=== PATIENT | female | born 1935 | race Caucasian/White ===

== ENCOUNTER 2017-11-15 16:07 | Emergency (ER) | payer OTHER ==
[~2017-11-15] VITALS: Ht 162.6 cm; Wt 158.8 kg
[~2017-11-15 16:07] MED LIST: ALLOPURINOL300 MG PO; ASPIRIN EC81 MG PO; BENZONATATE100 MG PO; CARVEDILOL6.25 MG PO; CLONIDINE HCL0.1 MG PO; FLUTICASONE PRO16 GM; GABAPENTIN300 MG PO; Gabapentin PO; HYDRALAZINE HC100 MG PO; ISOSORBIDE MONO30 MG PO; K DUR10 MEQ PO; LATANOPROST2.5 ML OP; LEVAQUIN250 MG PO; LEVOFLOXACIN500 MG PO; LEVOTHYROXINE50 MCG PO; LOSARTAN POTAS100 MG PO; MEDROL4 MG PO; NITROSTAT0.4 MG PO; PEPCID20 MG PO; PLAVIX75 MG PO; PROAIR HFA INH8.5 GM INH; SIMVASTATIN40 MG PO; TORSEMIDE10 MG PO; TORSEMIDE5 MG PO; ZOFRAN ODT4 MG PO
[2017-11-15] MEDS ORDERED: IBUPROFEN 600 MG TAB PO STA (16:59)
[2017-11-15] MEDS ORDERED: CYCLOBENZAPRINE HCL 10 MG TAB PO ONE (17:00)
[2017-11-15] MEDS ORDERED: HYDROCODONE/APAP 10MG-325MG TAB PO ONE (17:00)
[2017-11-15] MEDS ORDERED: CYMBALTA30 MG PO (19:02)
[2017-11-15] MEDS ORDERED: SYMBICORT 80-10.2 GM INH (19:02)
[2017-11-15] MEDS ORDERED: MECLIZINE HCL12.5 MG PO (19:02)
[2017-11-15] MEDS ORDERED: NORCO 7.5-3251 EACH PO (19:02)
[2017-11-15] MEDS ORDERED: MONTELUKAST SOD10 MG PO (19:02)
--- NOTE | 2017-11-15 20:18 | Diagnostic Imaging Report ---
Cervical Spine, 3 views HISTORY: Pain COMPARISON: None. FINDINGS: Limited sensitivity for detection of subtle fractures and ligamentous abnormalities. On the lateral view, the cervical spine is visualized from the skull base to C4. The alignment is normal. There is posterior fusion of C5-T2. No acute displaced fracture involving the visualized cervical spine. There is thickening of the prevertebral soft tissues up to 2.1 cm. IMPRESSION: Very limited exam. Lower cervical spine is not imaged on lateral view. Posterior fusion of lower cervical/upper thoracic spine. Increased prevertebral soft tissue thickness. Recommend further evaluation with soft tissue neck CT. Signed by: Dr. Evert Thomason MD on 11/15/2017 8:14 PM
--- NOTE | 2017-11-15 20:20 | Diagnostic Imaging Report ---
THORACIC SPINE LIMIT - 3 views HISTORY: Pain COMPARISON: None available. FINDINGS: Very limited study due to generalized demineralization and body habitus. Status post fusion of lower cervical/upper thoracic spine. Multilevel degenerative changes, marked by disc space narrowing and osteophytosis. IMPRESSION: Very limited, essentially nondiagnostic study. If there is high clinical concern for thoracic spine injury, consider obtaining CT. Signed by: Dr. Evert Thomason MD on 11/15/2017 8:16 PM
[2017-11-15] MEDS ORDERED: HYDROMORPHONE 1MG/1ML INJ IM STA (20:36)
--- NOTE | 2017-11-15 22:20 | Diagnostic Imaging Report ---
EXAMINATION: CT of the cervical spine and thoracic HISTORY:Status post fall, neck and back pain COMPARISON:None available TECHNIQUE: Multidetector helical axial images were obtained without contrast from the foramen magnum to superior endplate of T9. The images were reconstructed using bone and soft tissue algorithms and were viewed in axial, sagittal and coronal planes. Image quality: Very suboptimal study due to patient's body habitus and inability to raise their arms, which significant streak artifact and x-rayed in attenuation. FINDINGS: Alignment: Normal cervical lordosis. Increased thoracic kyphosis. Fracture/anterior subluxation at T8 as detailed below. Soft tissues: Paraspinal swelling/hematoma at the T8 level related to acute fracture. Vertebrae: -Acute comminuted mildly displaced fracture involving the anterior aspect of the T8 vertebral body (about 2 anterior thirds), the fracture line appears to be extending to the posterior aspect of the inferior endplate on both sides, limited evaluation of the posterior vertebral body cortex, grossly no posterior bone fragment retropulsion within the spinal canal is seen at this time. Mild mild decreased vertebral body height anteriorly (about 20%). -Anterior bridging osteophyte throughout the thoracic spine extending from T3 to partially visualized T9 is fractured at the discovertebral junction of T7-T8 due to above-mentioned T8 fracture. Intervertebral disk degenerative changes: No significant degenerative spinal canal or foraminal stenoses in the upper cervical spine. The spinal canal and foramina in the thoracic segment cannot adequately be evaluated. Postoperative changes: Bilateral posterolateral fusion with transarticular screws from C5 to T1, no evidence of hardware failure, fracture or loosening. IMPRESSION: Very suboptimal study due to patient's body habitus and inability to raise the arms. The thoracic spine was only scanned down to the superior endplate of T9. The spinal canal content cannot be evaluated. 1. Acute comminuted and mildly displaced fracture of the anterior two thirds of the T8 vertebral body, there is anterior subluxation of the fractured fragment by approximately 6 mm (at the T7-T8 discovertebral level). Grossly no posterior retropulsion within the spinal canal. Further evaluation of the remaining segment of the thoracic spine is recommended on an open MRI or wider bore CT scanner. 2. Posterior cervical spine fusion from C5 to T1 Note: Acute postraumatic spinal cord, vascular or ligamentous injuries cannot adequately be assessed by CT. The findings were discussed with the ER physician Dr. Maya on 11/15/2017 at 10:00 PM Signed by: Dr. Yamilet Cole M.D. on 11/15/2017 10:16 PM
[2017-11-15 22:25] LABS: BASOPHILS % 0.2 % (0.0-1.0); EOSINOPHILS # (AUTO) 0.2 (0.0-0.4); EOSINOPHILS % 2.1 % (0.0-6.0); HEMATOCRIT 30.4 % (34.2-44.1); HEMOGLOBIN 9.3 g/dL (12.0-16.0); LYMPHOCYTES # (AUTO) 1.7 (1.0-3.2); MEAN CORPUSCULAR HEMOGLOBIN 27.7 pg (28-32); MEAN CORPUSCULAR HGB CONC 30.6 g/dL (31-35); MEAN CORPUSCULAR VOLUME 90.5 fL (81-99); MONOCYTES # (AUTO) 0.8 (0.2-0.8); NEUTROPHILS # (AUTO) 6.2 (2.1-6.9); NEUTROPHILS % 69.4 % (38.7-80.0); PLATELET COUNT 164 x10e3/uL (140-360); RED BLOOD COUNT 3.36 x10e6/uL (3.6-5.1)
[2017-11-15 22:45] LABS: ALBUMIN 2.9 g/dL (3.5-5.0); ALBUMIN/GLOBULIN RATIO 0.9 (0.8-2.0); ANION GAP 11.3 mmol/L (8-16); CALCIUM 8.7 mg/dL (8.4-10.2); CREATININE, SERUM 1.1 mg/dL (0.57-1.11); POTASSIUM 4.3 mmol/L (3.5-5.1)
[2017-11-15] MEDS ORDERED: HYDROMORPHONE 1MG/1ML INJ IV STA (23:44)
[2017-11-15] MEDS ORDERED: HYDROMORPHONE 2MG/ML INJ ONE (23:50)
[2017-11-15 23:56] VITALS: BP 165/57
== END 2017-11-15 23:57 | disposition short-term general hospital (02) ==
LOC: ER 16:10
DX: M54.6 Pain in thoracic spine (principal); S22.069A Unspecified fracture of T7-T8 vertebra, initial encounter for closed fracture; W01.0XXA Fall on same level from slipping, tripping and stumbling without subsequent striking against object, initial encounter; Y93.01 Activity, walking, marching and hiking; Y92.008 Other place in unspecified non-institutional (private) residence as the place of occurrence of the external cause; I10 Essential (primary) hypertension; Z95.5 Presence of coronary angioplasty implant and graft
CPT/HCPCS: 36415; 72040; 72070; 72125; 72128; 80053; 85025; 93005; 99284; J1170 ×2

== ENCOUNTER 2018-01-13 08:32 | Emergency (ER) | payer OTHER ==
[~2018-01-13] VITALS: Ht 162.6 cm; Wt 181.4 kg
[~2018-01-13 08:32] MED LIST changes: +CYMBALTA30 MG PO; +MECLIZINE HCL12.5 MG PO; +MONTELUKAST SOD10 MG PO; +NORCO 7.5-3251 EACH PO; +SYMBICORT 80-10.2 GM INH
--- OUTSIDE RECORDS SUMMARY | 2018-01-13 08:35 | XMS REPORT ---
Author Author [facility] Address Unknown Phone Unavailable Care Team Providers Care Ladle Repairer Name Role Phone PAPITO BREWSTER Unavailable Unavailable Problems This patient has no known problems. Allergies, Adverse Reactions, Alerts This patient has no known allergies or adverse reactions. Medications This patient has no known medications. Results Test Description Test Time Test Comments Text Results Atomic Results Result Comments CT THORACIC SPINE WO [place] [address] Patient Name: NEHA BARRY MR #: [id number] : 1935 Age/Sex: 82/F Req # : [id number] Adm Physician: Ordered by: PANFILO ESTRADA MD Report # : [id number] Location: ER Room/Bed: Procedure: [id number] [id number] CT/CT THORACIC SPINE WO Exam Date: Exam Time : REPORT STATUS: Signed EXAMINATION: CT of the cervical spine and thoracic HISTORY:Status post fall, neck and back pain COMPARISON:None available TECHNIQUE: Multidetector helical axial images were obtained without contrast from the foramen magnum to superior endplate of T9. The images were reconstructed using bone and soft tissue algorithms and were viewed in axial, sagittal and coronal planes. Image quality: Very suboptimal study due to patient's body habitus and inability to raise their arms, which significant streak artifact and x-rayed in attenuation. FINDINGS: Alignment: Normal cervical lordosis. Increased thoracic kyphosis. Fracture/anterior subluxation at T8 as detailed below. Soft tissues: Paraspinal swelling/hematoma at the T8 level related to acute fracture. Vertebrae: -Acute comminuted mildly displaced fracture involving the anterior aspect of the T8 vertebral body ( about 2 anterior thirds), the fracture line appears to be extending to the posterior aspect of the inferior endplate on both sides, limited evaluation of the posterior vertebral body cortex, grossly no posterior bone fragment retropulsion within the spinal canal is seen at this time. Mild mild decreased vertebral body height anteriorly (about 20%). -Anterior bridging osteophyte throughout the thoracic spine extending from T3 to partially visualized T9 is fractured at the discovertebral junction of T7-T8 due to above-mentioned T8 fracture. Intervertebral disk degenerative changes: No significant degenerative spinal canal or foraminal stenoses in the upper cervical spine. The spinal canal and foramina in the thoracic segment cannot adequately be evaluated. Postoperative changes: Bilateral posterolateral fusion with transarticular screws from C5 to T1, no evidence of hardware failure, fracture or loosening. IMPRESSION: Very suboptimal study due to patient's body habitus and inability to raise the arms. The thoracic spine was only scanned down to the superior endplate of T9. The spinal canal content cannot be evaluated. 1. Acute comminuted and mildly displaced fracture of the anterior two thirds of the T8 vertebral body , there is anterior subluxation of the fractured fragment by approximately 6 mm (at the T7-T8 discovertebral level). Grossly no posterior retropulsion within the spinal canal. Further evaluation of the remaining segment of the thoracic spine is recommended on an open MRI or wider bore CT scanner. 2. Posterior cervical spine fusion from C5 to T1 Note: Acute postraumatic spinal cord, vascular or ligamentous injuries cannot adequately be assessed by CT. The findings were discussed with the ER physician Dr. Estrada on 11/15/2017 at 10:00 PM Signed by: Dr. Chuck Cole M.D. on 11/15/2017 10:16 PM Dictated By: CHUCK COLE MD 15 Transcribed By: DANIEL on 11/15/172215 COPY TO: PANFILO ESTRADA MD CT CERVICAL SPINE [place] [address] Patient Name: NEHA BARRY MR #: [id number] : 1935 Age/Sex: 82/F [facility] # : [id number] [facility] Physician: Ordered by: PANFILO ESTRADA MD Report # : [id number] Location: ER Room/Bed: Procedure: [id number] [id number] CT/CT CERVICAL SPINE WO Exam Date: Exam Time : REPORT STATUS: Signed EXAMINATION: CT of the cervical spine and thoracic HISTORY:Status post fall, neck and back pain COMPARISON:None available TECHNIQUE: Multidetector helical axial images were obtained without contrast from the foramen magnum to superior endplate of T9. The images were reconstructed using bone and soft tissue algorithms and were viewed in axial, sagittal and coronal planes. Image quality: Very suboptimal study due to patient's body habitus and inability to raise their arms, which significant streak artifact and x-rayed in attenuation. FINDINGS: Alignment: Normal cervical lordosis. Increased thoracic kyphosis. Fracture/anterior subluxation at T8 as detailed below. Soft tissues: Paraspinal swelling/hematoma at the T8 level related to acute fracture. Vertebrae: -Acute comminuted mildly displaced fracture involving the anterior aspect of the T8 vertebral body ( about 2 anterior thirds), the fracture line appears to be extending to the posterior aspect of the inferior endplate on both sides, limited evaluation of the posterior vertebral body cortex, grossly no posterior bone fragment retropulsion within the spinal canal is seen at this time. Mild mild decreased vertebral body height anteriorly (about 20%). -Anterior bridging osteophyte throughout the thoracic spine extending from T3 to partially visualized T9 is fractured at the discovertebral junction of T7-T8 due to above-mentioned T8 fracture. Intervertebral disk degenerative changes: No significant degenerative spinal canal or foraminal stenoses in the upper cervical spine. The spinal canal and foramina in the thoracic segment cannot adequately be evaluated. Postoperative changes: Bilateral posterolateral fusion with transarticular screws from C5 to T1, no evidence of hardware failure, fracture or loosening. IMPRESSION: Very suboptimal study due to patient's body habitus and inability to raise the arms. The thoracic spine was only scanned down to the superior endplate of T9. The spinal canal content cannot be evaluated. 1. Acute comminuted and mildly displaced fracture of the anterior two thirds of the T8 vertebral body , there is anterior subluxation of the fractured fragment by approximately 6 mm (at the T7-T8 discovertebral level). Grossly no posterior retropulsion within the spinal canal. Further evaluation of the remaining segment of the thoracic spine is recommended on an open MRI or wider bore CT scanner. 2. Posterior cervical spine fusion from C5 to T1 Note: Acute postraumatic spinal cord, vascular or ligamentous injuries cannot adequately be assessed by CT. The findings were discussed with the ER physician Dr. Estrada on 11/15/2017 at 10:00 PM Signed by: Dr. Chuck Cole M.D. on 11/15/2017 10:16 PM Dictated By: CHUCK COLE MD 15 Transcribed By: DANIEL on 11/15/172215 COPY TO: PANFILO ESTRADA MD C-SPINE 2 VIEWS AP LATERAL [place] [address] Patient Name: NEHA BARRY MR #: [id number] : 1935 Age/Sex: 82/F Req #: [id number] Adm Physician: Ordered by: ARYAN LEMUS CLAY MAKER Report #: [id number] Location: ER Room/Bed: Procedure: [id number] DX/C-SPINE 2 VIEWS AP LATERAL Exam Date: 11/15/17 Exam Time: 1844 REPORT STATUS: Signed Cervical Spine, 3 views HISTORY: Pain COMPARISON: None. FINDINGS: Limited sensitivity for detection of subtle fractures and ligamentous abnormalities. On the lateral view, the cervical spine is visualized from the skull base to C4. The alignment is normal. There is posterior fusion of C5-T2. No acute displaced fracture involving the visualized cervical spine. There is thickening of the prevertebral soft tissues up to 2.1 cm. IMPRESSION: Very limited exam. Lower cervical spine is not imaged on lateral view. Posterior fusion of lower cervical/upper thoracic spine. Increased prevertebral soft tissue thickness. Recommend further evaluation with soft tissue neck CT. Signed by: Dr. Evert Oconnell MD on 11/15/2017 8: 14 PM Dictated By: EVERT OCONNELL MD 13 Transcribed By: DANIEL on 11/15/172013 COPY TO: ARYAN LEMUS NP THORACIC SPINE LIMIT [place] [address] Patient Name: NEHA BARRY MR #: [id number] : 1935 Age/Sex: 82/F Req # : [id number] Adm Physician: Ordered by: ARYAN LEMUS NP Report #: [id number] Location: ER Room/Bed: Procedure: [id number] DX/THORACIC SPINE LIMIT Exam Date: 11/15/17 Exam Time: 1844 REPORT STATUS: Signed THORACIC SPINE LIMIT - 3 views HISTORY: Pain COMPARISON: None available. FINDINGS: Very limited study due to generalized demineralization and body habitus. Status post fusion of lower cervical/upper thoracic spine. Multilevel degenerative changes , marked by disc space narrowing and osteophytosis. IMPRESSION: Very limited, essentially nondiagnostic study. If there is high clinical concern for thoracic spine injury, consider obtaining CT. Signed by: Dr. Evert Oconnell MD on 11/15/2017 8:16 PM Dictated By: EVERT OCONNELL MD 15 Transcribed By: DANIEL on 11/15/172015 COPY TO: ARYAN LEMUS NP
--- OUTSIDE RECORDS SUMMARY | 2018-01-13 08:35 | XMS REPORT | Clinical Summary ---
Author Author [facility] Address Unknown Phone Unavailable Care Team Providers Care Brand Communications Manager Name Role Phone PCP Unavailable Allergies Active Allergy Reactions Severity Noted Date Comments Penicillins Anaphylaxis High 07/16/2016 Sulfa (Sulfonamide Anaphylaxis High 07/16/2016 Antibiotics) Current Medications Prescription Sig. Disp. Refills Start End Date Status Date allopurinol (ZYLOPRIM) 300 mg. 03/30/20 Active 300 MG tablet 16 clopidogrel (PLAVIX) 75 75 mg. 05/20/20 Active mg tablet 16 aspirin 81 MG EC tablet 81 mg. Active budesonide-formoterol 2 puffs. 06/18/20 Active (SYMBICORT) 80-4.5 16 mcg/actuation inhaler gabapentin (NEURONTIN) TAKE 1 TABLET BY MOUTH 2 06/08/20 Active 600 MG tablet TIMES DAILY. 16 hydrALAZINE (APRESOLINE) 100 mg. 01/05/20 Active 100 MG tablet 16 simvastatin (ZOCOR) 40 MG 40 mg. 01/05/20 Active tablet 16 potassium chloride 20 mEq 1 tablet. 07/02/20 Active TbER 16 losartan (COZAAR) 100 MG 100 mg. 04/29/20 Active tablet 16 levothyroxine (SYNTHROID, 75 mcg. 04/19/20 Active LEVOTHROID) 75 MCG tablet 16 isosorbide mononitrate 30 mg. 01/05/20 Active (IMDUR) 30 MG 24 hr 16 tablet Active Problems Problem Noted Date Cellulitis of right lower extremity 07/16/2016 Social History Tobacco Use Types Packs/Day Years Used Date Never Smoker Alcohol Use Drinks/Week oz/Week Comments No Sex Assigned at Date Recorded Not on file Last Filed Vital Signs Not on file Plan of Treatment Not on file Results Not on fileafter 01/12/2017
[2018-01-13] MEDS ORDERED: FAMOTIDINE 20 MG/2 ML VIAL IV STA (08:37)
[2018-01-13] MEDS ORDERED: METOCLOPRAMIDE HCL 10 MG/2ML VIAL IV ONE (08:45)
[2018-01-13 09:39] LABS: BASOPHILS % 0.4 % (0.0-1.0); EOSINOPHILS # (AUTO) 0.1 (0.0-0.4); EOSINOPHILS % 0.8 % (0.0-6.0); LYMPHOCYTES # (AUTO) 1.5 (1.0-3.2); LYMPHOCYTES % 21.3 % (18.0-39.1); MEAN CORPUSCULAR HEMOGLOBIN 28.1 pg (28-32); MEAN CORPUSCULAR VOLUME 93.7 fL (81-99); MONOCYTES # (AUTO) 0.5 (0.2-0.8); MONOCYTES % 7.6 % (4.4-11.3); NEUTROPHILS % 69.5 % (38.7-80.0); PLATELET COUNT 153 x10e3/uL (140-360); RED BLOOD COUNT 4.27 x10e6/uL (3.6-5.1); RED CELL DISTRIBUTION WIDTH 16.4 % (11.7-14.4)
[2018-01-13 09:53] LABS: ALBUMIN 3.2 g/dL (3.5-5.0); ALBUMIN/GLOBULIN RATIO 0.8 (0.8-2.0); ANION GAP 14.8 mmol/L (8-16); CALCIUM 9.7 mg/dL (8.4-10.2); CREATININE, SERUM 0.96 mg/dL (0.57-1.11); POTASSIUM 3.8 mmol/L (3.5-5.1)
[2018-01-13 10:19] LABS: BILIRUBIN,URINE NEGATIVE (NEGATIVE); CLARITY,URINE SL CLOUDY (CLEAR); COLOR,URINE YELLOW (YELLOW); KETONES,URINE NEGATIVE (NEGATIVE); LEUKOCYTE ESTERASE ,URINE NEGATIVE (NEGATIVE); NITRITE,URINE NEGATIVE (NEGATIVE); PROTEIN,URINE DIPSTICK 2+ (NEGATIVE); URINE UROBILINOGEN 0.2 mg/dL (0.2 - 1)
--- NOTE | 2018-01-13 10:20 | Diagnostic Imaging Report ---
PROCEDURE:ABDOMEN ACUTE SERIES W/PA CXR COMPARISON:CT chest 11/15/2017. INDICATIONS:VOMITING, NAUSEA FINDINGS: CHEST: Normal cardiac silhouette. Normal mediastinum. No focal consolidation or parenchymal mass. Bibasilar atelectasis. No pleural effusion or pneumothorax. Scarring is present in the left lung base. BOWEL PATTERN: Nonobstructive bowel gas pattern. Moderate amount of retained feces is present in the colon and rectum. Several densities project over the colon, likely representing retained contrast within diverticuli. No abnormal calcifications project over the expected region of the kidneys, course of the ureters bilaterally, and urinary bladder. SOFT TISSUES: Normal. BONES: Posterior fusion of the lower cervical spine. Degenerative changes of the thoracic and lumbar spine. CONCLUSION: 1. No acute thoracic abnormality. 2. No evidence of bowel obstruction. Dictated by: Bruno Cleveland M.D. on 01/13/2018 at 10:19 Electronically approved by: Bruno Cleveland M.D. on 01/13/2018 at 10:19
[2018-01-13 10:41] LABS: WBC,URINE (MAN) 0-5 /HPF (0-5)
[2018-01-13 10:42] LABS: BACTERIA,URINE RARE /HPF; EPITHELIAL CELLS,URINE RARE /LPF
--- NOTE | 2018-01-13 11:29 | Diagnostic Imaging Report ---
PROCEDURE:ANKLE 3+ VIEWS LEFT TECHNIQUE: INDICATION: COMPARISON:None. FINDINGS:Soft tissue swelling is present around the ankle and the medial and lateral malleoli. No acute displaced fracture or dislocation. Bone mineralization is within normal limits. Degenerative changes are present. Atherosclerotic calcifications. No expansile lytic or sclerotic lesion. CONCLUSION:Soft tissue swelling without focal underlying osseous abnormality. Dictated by: Bruno Cleveland M.D. on 01/13/2018 at 11:29 Electronically approved by: Bruno Cleveland M.D. on 01/13/2018 at 11:29
[2018-01-13] MEDS ORDERED: ONDANSETRON HCL 4 MG ORAL DISINTEGRATING TAB PO ONE ×2 (12:00)
== END 2018-01-13 12:01 | disposition home or self-care (01) ==
LOC: ER 08:32
DX: R11.2 Nausea with vomiting, unspecified (principal); T50.995A Adverse effect of other drugs, medicaments and biological substances, initial encounter; G89.4 Chronic pain syndrome; E66.01 Morbid (severe) obesity due to excess calories
CPT/HCPCS: 36415; 73610; 74022; 80053; 81001; 85025; 87086; 99285; J2765

== ENCOUNTER 2018-03-09 16:32 | Emergency (ER) | payer OTHER ==
[~2018-03-09] VITALS: Ht 162.6 cm; Wt 181.4 kg
--- OUTSIDE RECORDS SUMMARY | 2018-03-09 16:35 | XMS REPORT | Clinical Summary ---
Author Author [facility] Address Unknown Phone Unavailable Care Team Providers Care Candle Wicker Name Role Phone PCP Unavailable Allergies Active [...] Not on file Results Not on fileafter 03/08/2017
--- OUTSIDE RECORDS SUMMARY | 2018-03-09 16:35 | XMS REPORT | Continuity of Care Document ---
Author Author [facility] Organization [facility] Address [address] [place] [address] Phone Unavailable Care Team Providers Care Project Manager Industrial Name Role Phone YAMILE SWAIN PCP Insurance Providers Guarantor Neha Carcamo Address [address] [place] [address] Email [email or web address] Payer [employer] Policy Number [id number] Subscriber's Name Neha Carcamo Relationship 18 Self / Same As Patient Group Number [id number] Group Name [employer] - Medicare Advantage Divis Effective Date 18 Advance Directives Directive Response Recorded Date/Time Does the patient have an advance directive? No 10/23/15 6:32pm If yes, is advance directive on file with [facility]? Yes 10/03/15 1:52am If not on file with [facility] will patient provide a copy? Yes 10/03/15 1:52am Do you have a Directive to Physician? No 01/13/18 11:18am Do you have a Medical Power of Steam Plant Records Clerk? No 01/13/18 11:18am Do you have an out of hospital Do Not Resuscitate Order? No 01/13/18 11:18am Do you have any special needs we should be aware of? No 01/13/18 11:18am Do you have a support person here with you today? Yes 01/13/18 11:18am Did patient receive Notice of Privacy Practices? Yes 01/13/18 11:18am Did patient receive patient rights and responsibilities? Yes 01/13/18 11:18am Problems Medical Problem Onset Date Status CHF (congestive heart failure) 10/23/2015 Acute Cellulitis of both lower extremities 10/02/2015 Acute Medications Current Home Medications Medication Dose Units Route Directions Days Qty Instructions Start Date Albuterol Sulfate (Proair Hfa Inhaler*) 8.5 Gm Inh 2 Inh Inhalation Four Times Daily Allopurinol 300 Mg Tablet 300 Mg Oral Daily 30 Tab Aspirin (Aspirin Ec) 81 Mg Tablet.dr 81 Mg Oral Daily 30 Tab Benzonatate 100 Mg Capsule 100 Mg Oral Three Times A Day as needed for Cough Budesonide/Formoterol Fumarate (Symbicort 80-4.5 Mcg Inhaler) 10.2 Gm Hfa.aer.ad 2 Each Inhalation Twice A Day Carvedilol 6.25 Mg Tablet 6.25 Mg Oral Twice A Day Clopidogrel Bisulfate (Plavix) 75 Mg Tablet 75 Mg Oral Daily 30 Tab Duloxetine Hcl (Cymbalta) 30 Mg Capsule.dr 30 Mg Oral Daily 30 Cap Famotidine (Pepcid) 20 Mg Tablet 20 Mg Oral Twice Daily Before Meals 30 Days 11/01/15 Fluticasone Propionate 16 Gm Palm.susp 2 Sprays Nasal Daily Gabapentin 300 Mg Capsule 300 Mg Oral Twice A Day 60 Cap Gabapentin 300 Mg Cap 100 Mg Oral Every 12 Hours 30 Days 11/01/15 Hydralazine Hcl 100 Mg Tablet 100 Mg Oral Four Times Daily Hydrocodone Bit/Acetaminophen ([place] 7.5-325 Tablet) 1 Each Tablet 1 Ea Oral Every 8 Hours for Pain Isosorbide Mononitrate (Isosorbide Mononitrate Er) 30 Mg Tab.er.24h 30 Mg Oral Daily 30 Tab Latanoprost 2.5 Ml Drops 1 Drop Ophthalmic Bedtime Levofloxacin (Levaquin) 250 Mg Tablet 250 Mg Oral Daily 7 Tab 11/01 Levothyroxine Sodium 50 Mcg Tablet 88 Mcg Oral Daily 30 Tab Losartan Potassium 100 Mg Tablet 100 Mg Oral Daily Meclizine Hcl 12.5 Mg Tablet 25 Mg Oral Three Times A Day Montelukast Sodium 10 Mg Tablet 10 Mg Oral Daily 30 Tab Nitroglycerin (Nitrostat) 0.4 Mg Tab.subl 0.4 Mg Oral As Needed as needed for Chest Pain Ondansetron (Zofran Odt) 4 Mg Tab.rapdis 4 Mg Oral Every 6 Hours as needed for Nausea And Vomiting 30 Tab 11/01/15 Potassium Chloride (K Dur*) 10 Meq Tabcr 20 Meq Oral Twice A Day Simvastatin 40 Mg Tablet 40 Mg Oral Today At 9:00PM 30 Tab Torsemide 10 Mg Tablet 40 Mg Oral Daily Past Home Medications Medication Directions Ordered Status Clonidine Hcl 0.1 Mg Tablet, 0.1 Mg Oral Three Times A Day Discontinued Levofloxacin 500 Mg Tablet, 500 Mg Oral Daily Discontinued Methylprednisolone (Medrol) 4 Mg Tablet, 4 Mg Oral Discontinued Torsemide 5 Mg Tablet, 5 Mg Oral Twice A Day Discontinued Social History Social History Problem Response Recorded Date/Time Onset Date Status Hx Psychiatric Problems No 10/23/2015 6:32pm Not Applicable Not Applicable Hx Eating Disorder No 10/03/2015 1:52am Not Applicable Not Applicable Hx Substance Use Disorder No 10/03/2015 1:52am Not Applicable Not Applicable Hx Depression Yes 10/03/2015 1:52am Not Applicable Not Applicable Hx Alcohol Use No 10/03/2015 1:52am Not Applicable Not Applicable Hx Substance Use Treatment No 10/03/2015 1:52am Not Applicable Not Applicable Hx Physical Abuse No 10/03/2015 1:52am Not Applicable Not Applicable Hospital Discharge Instructions No hospital discharge instruction information available. Plan of Care Discharge Date 01/13/18 12:01pm Disposition HOME, SELF-CARE Condition at Discharge Stable Instructions/Education Provided Medication Safety Vomiting - Adult Forms Provided Work/School Excuse Prescriptions See Medication Section Referrals YAMILE SWAIN Order Date: Call for an appointment Address: [address] [place] [id number] Additional Instructions/Education Discontinue Vicodin Functional Status No functional status information available. Allergies, Adverse Reactions, Alerts Allergen Type Severity Reaction Status Last Updated Sulfa (Sulfonamide Antibiotics) Allergy Intermediate SWELLING Active 10/26 penicillin Allergy Intermediate SWELLING Active 10/23/15 Immunizations No immunization information available. Vital Signs Acute Vital Signs Vital Response Date/Time Temperature (Fahrenheit) 97.8 degrees F (97.6 - 99.5) 11/15/2017 11:56pm Pulse Pulse Rate (adult) 73 bpm (60 - 90) 11/15/2017 11:56pm Respiratory Rate 22 bpm (12 - 24) 11/15/2017 11:56pm Blood Pressure 165/57 mm Hg 11/15/2017 11:56pm Height 5 ft 4 in 01/13/2018 8:34am Weight 400 lb 01/13/2018 8:34am Body Mass Index 68.7 kg/m^2 01/13/2018 8:34am Results Laboratory Results Test Name Result Units Flags Reference Collection Date/Time Result Date/ Time Comments White Blood Count 7.13 x10e3/uL 4.8-10.8 01/13/2018 9:01/13/2018 9 :46am Red Blood Count 4.27 x10e6/uL 3.6-5.1 01/13/2018 9:01/13/2018 9: 46am Hemoglobin 12.0 g/dL 12.0-16.0 01/13/2018 9:01/13/2018 9:46am Hematocrit 40.0 % 34.2-44.1 01/13/2018 9:01/13/2018 9:46am Mean Corpuscular Volume 93.7 fL 81-99 01/13/2018 9:01/13/2018 9: 46am Mean Corpuscular Hemoglobin 28.1 pg 28-32 01/13/2018 9:01/13/2018 9:46am Mean Corpuscular Hemoglobin Concent 30.0 g/dL L 31-35 01/13/2018 9:01/13/2018 9:46am Red Cell Distribution Width 16.4 % H 11.7-14.4 01/13/2018 9:2017 9:46am Platelet Count 153 x10e3/uL 140-360 01/13/2018 9:01/13/2018 9: 46am Neutrophils (%) (Auto) 69.5 % 38.7-80.0 01/13/2018 9:01/13/2018 9: 46am Lymphocytes (%) (Auto) 21.3 % 18.0-39.1 01/13/2018 9:01/13/2018 9: 46am Monocytes (%) (Auto) 7.6 % 4.4-11.3 01/13/2018 9:01/13/2018 9: 46am Eosinophils (%) (Auto) 0.8 % 0.0-6.0 01/13/2018 9:01/13/2018 9: 46am Basophils (%) (Auto) 0.4 % 0.0-1.0 01/13/2018 9:01/13/2018 9:46am IM GRANULOCYTES % 0.4 % 0.0-1.0 01/13/2018 9:01/13/2018 9:46am Neutrophils # (Auto) 5.0 2.1-6.9 01/13/2018 9:1901/13/2018 9:46am Lymphocytes # (Auto) 1.5 1.0-3.2 01/13/2018 9:01/13/2018 9:46am Monocytes # (Auto) 0.5 0.2-0.8 01/13/2018 9:01/13/2018 9:46am Eosinophils # (Auto) 0.1 0.0-0.4 01/13/2018 9:01/13/2018 9:46am Basophils # (Auto) 0.0 0.0-0.1 01/13/2018 9:01/13/2018 9:46am Absolute Immature Granulocyte (auto 0.03 x10e3/uL 0-0.1 01/13/2018 9: 1901/13/2018 9:46am Urine Color YELLOW YELLOW 01/13/2018 8:00am 01/13/2018 10:19am Urine Clarity SL CLOUDY CLEAR 01/13/2018 8:00am 01/13/2018 10:19am Urine Specific Gray 1.020 1.010-1.025 01/13/2018 8:00am 2017 10:19am Urine pH 5 5 - 7 01/13/2018 8:00am 01/13/2018 10:19am Urine Leukocyte Esterase NEGATIVE NEGATIVE 01/13/2018 8:00am 2017 10:19am Urine Nitrite NEGATIVE NEGATIVE 01/13/2018 8:00am 01/13/2018 10:19am Urine Protein 2+ H NEGATIVE 01/13/2018 8:00am 01/13/2018 10:19am Urine Glucose (UA) NEGATIVE NEGATIVE 01/13/2018 8:00am 01/13/2018 10: 19am Urine Ketones NEGATIVE NEGATIVE 01/13/2018 8:00am 01/13/2018 10:19am Urine Urobilinogen 0.2 mg/dL 0.2 - 1 01/13/2018 8:00am 01/13/2018 10: 19am Urine Bilirubin NEGATIVE NEGATIVE 01/13/2018 8:00am 01/13/2018 10: 19am Urine Blood 4+ H NEGATIVE 01/13/2018 8:00am 01/13/2018 10:19am Urine WBC 0-5 /HPF 0-5 01/13/2018 8:00am 01/13/2018 10:42am Urine RBC 11-20 /HPF H 0-5 01/13/2018 8:00am 01/13/2018 10:42am Urine Bacteria RARE /HPF NONE 01/13/2018 8:00am 01/13/2018 10:42am Urine Epithelial Cells RARE /LPF NONE 01/13/2018 8:00am 01/13/2018 10: 42am Sodium Level 143 mmol/L 136-145 01/13/2018 9:1901/13/2018 10:10am Potassium Level 3.8 mmol/L 3.5-5.1 01/13/2018 9:1901/13/2018 10: 10am Chloride Level 108 mmol/L H 98-107 01/13/2018 9:1901/13/2018 10:10am Carbon Dioxide Level 24 mmol/L 22-01/13/2018 9:1901/13/2018 10: 10am Anion Gap 14.8 mmol/L 8-16 01/13/2018 9:1901/13/2018 10:10am Blood Urea Nitrogen 17 mg/dL 7-01/13/2018 9:01/13/2018 10:10am Creatinine 0.96 mg/dL 0.57-1.11 01/13/2018 9:1901/13/2018 10:10am BUN/Creatinine Ratio 18 6-25 01/13/2018 9:1901/13/2018 10:10am Estimat Glomerular Filtration Rate 56 ML/MIN L 60- 01/13/2018 9:19 10:10am Ranges were taken from the National Kidney Disease Education Program and the [employer] literature. Reference ranges: 60 or greater: Normal 16-59 (for 3 consecutive months): Chronic kidney disease 15 or less: Kidney failure Glucose Level 116 mg/dL 74-118 01/13/2018 9:01/13/2018 10:10am Calcium Level 9.7 mg/dL 8.4-10.2 01/13/2018 9:01/13/2018 10:10am Total Bilirubin 0.5 mg/dL 0.2-1.2 01/13/2018 9:01/13/2018 10:10am Aspartate Amino Transf (AST/SGOT) 19 IU/L 5-34 01/13/2018 9:2017 10:10am Alanine Aminotransferase (ALT/SGPT) 15 IU/L 0-55 01/13/2018 9: 10:10am Total Protein 7.2 g/dL 6.5-8.1 01/13/2018 9:01/13/2018 10:10am Albumin 3.2 g/dL L 3.5-5.0 01/13/2018 9:01/13/2018 10:10am Globulin 4.0 g/dL H 2.3-3.5 01/13/2018 9:01/13/2018 10:10am Albumin/Globulin Ratio 0.8 0.8-2.0 01/13/2018 9:01/13/2018 10: 10am Alkaline Phosphatase 134 IU/L 40-150 01/13/2018 9:01/13/2018 10: 10am Procedures Procedure Status Date Provider(s) Computed tomography of cervical spine without contrast Active 11/15/17 PANFILO ESTRADA MD Computed tomography of thoracic spine without contrast Active 11/15/17 PANFILO ESTRADA MD Encounters Encounter Location Arrival/Admit Date Discharge/Depart Date Attending Provider Departed Emergency Room [facility] 01/13/18 8:32am 12:01pm EMELY CARRINGTON MD Departed Emergency Room [facility] 11/15/17 4:10pm 11:57pm PAPITO BREWSTER MD
[2018-03-09 17:33] LABS: BASOPHILS % 0.5 % (0.0-1.0); EOSINOPHILS # (AUTO) 0.2 (0.0-0.4); EOSINOPHILS % 2.7 % (0.0-6.0); HEMATOCRIT 35.6 % (34.2-44.1); HEMOGLOBIN 10.9 g/dL (12.0-16.0); LYMPHOCYTES # (AUTO) 2.2 (1.0-3.2); LYMPHOCYTES % 26.5 % (18.0-39.1); MEAN CORPUSCULAR HEMOGLOBIN 28.2 pg (28-32); MEAN CORPUSCULAR HGB CONC 30.6 g/dL (31-35); MEAN CORPUSCULAR VOLUME 92.2 fL (81-99); MONOCYTES # (AUTO) 0.7 (0.2-0.8); MONOCYTES % 7.9 % (4.4-11.3); NEUTROPHILS # (AUTO) 5.1 (2.1-6.9); NEUTROPHILS % 61.9 % (38.7-80.0); PLATELET COUNT 201 x10e3/uL (140-360); RED BLOOD COUNT 3.86 x10e6/uL (3.6-5.1); RED CELL DISTRIBUTION WIDTH 16.6 % (11.7-14.4)
[2018-03-09 17:35] LABS: BILIRUBIN,URINE NEGATIVE (NEGATIVE); CLARITY,URINE CLEAR (CLEAR); COLOR,URINE YELLOW (YELLOW); KETONES,URINE NEGATIVE (NEGATIVE); LEUKOCYTE ESTERASE ,URINE NEGATIVE (NEGATIVE); NITRITE,URINE NEGATIVE (NEGATIVE); PROTEIN,URINE DIPSTICK NEGATIVE (NEGATIVE); URINE UROBILINOGEN 0.2 mg/dL (0.2 - 1)
[2018-03-09 17:47] LABS: ALBUMIN 2.8 g/dL (3.5-5.0); ALBUMIN/GLOBULIN RATIO 0.8 (0.8-2.0); ANION GAP 11.2 mmol/L (8-16); CALCIUM 9.2 mg/dL (8.4-10.2); CREATININE, SERUM 1.03 mg/dL (0.57-1.11); POTASSIUM 4.2 mmol/L (3.5-5.1)
[2018-03-09 17:49] LABS: BACTERIA,URINE RARE /HPF; EPITHELIAL CELLS,URINE FEW /LPF; MUCUS,URINE FEW (RARE); RBC,URINE 0-5 /HPF (0-5)
[2018-03-09 17:54] LABS: CREATINE KINASE MB 0.7 ng/mL (0-5.0)
[2018-03-09 18:45] VITALS: BP 148/70
== END 2018-03-09 20:24 | disposition home or self-care (01) ==
LOC: ER 16:32
DX: I10 Essential (primary) hypertension (principal); R53.1 Weakness; N30.90 Cystitis, unspecified without hematuria; E78.00 Pure hypercholesterolemia, unspecified; Z95.5 Presence of coronary angioplasty implant and graft
CPT/HCPCS: 36415; 80053; 81001; 82550; 82553; 83880; 84484; 85025; 93005; 99284